=== PATIENT | male | born 1970 | race Caucasian/White ===

== ENCOUNTER 2022-09-25 16:46 | Emergency (ER) | payer OTHER ==
[2022-09-25 16:54] VITALS: BP 118/80; RESP 18; TEMP 97.6
[2022-09-25] MEDS ORDERED: MORPHINE SULFATE 4 MG/ML SYRINGE IM STA (17:11)
[2022-09-25] MEDS ORDERED: KETOROLAC 15 MG/ML 1 ML VIAL IM STA (17:11)
[2022-09-25] MEDS ORDERED: DIPH,PERTUS(ACELL)TETVAC-LF 0.5 ML VIAL IM ONE (17:22)
--- NOTE | 2022-09-25 17:25 | ED ---
Upper Extremity HPI - General Chief Complaint: Extremity Injury, Upper Stated Complaint: Left thumb laceration Time Seen by Provider: 09/25/22 17:01 Source: patient, EMS Mode of arrival: EMS Limitations: no limitations - History of Present Illness Initial Comments: 52-year-old male presenting with chief complaint of injury to the left thumb. Patient was working on his car when the romario malfunctioned causing the weight to come down onto his thumb. Patient is on [place]. Does not remember when his last tetanus shot was. He is currently experiencing 7 out of 10 throbbing pain to the thumb. Some sensation is intact. - Related Data Previous Rx's Medication Instructions Recorded Acetaminophen-Codeine 300-30mg 1 tab PO Q4H PRN 3 Days #18 tablet 09/25/22 [Tylenol w/codeine #3] Cephalexin [Keflex] 500 mg PO Q6HR 7 Days #28 cap 09/25/22 Allergies Allergy/AdvReac Type Severity Reaction Status Date / Time No Known Allergies Allergy Verified 09/25/22 16:54 Review of Systems ROS Statement: Those systems with pertinent positive or pertinent negative responses have been documented in the HPI. ROS Other: All systems not noted in ROS Statement are negative. Past Medical History Past Medical History: Diabetes Mellitus, GERD/Reflux, Myocardial Infarction ([place]) Additional Past Medical History / Comment(s): Heart cath with stent placement History of Any Multi-Drug Resistant Organisms: None Reported Past Surgical History: Heart Catheterization With Stent Past Psychological History: Bipolar, Depression, PTSD Smoking Status: Never smoker Past Alcohol Use History: Rare Past Drug Use History: None Reported General Exam Limitations: no limitations General appearance: alert, in no apparent distress Head exam: Present: atraumatic, normocephalic, normal inspection Eye exam: Present: normal appearance, EOMI. Absent: scleral icterus, periorbital swelling Neck exam: Present: normal inspection, full ROM Neurological exam: Present: alert, oriented X3, CN II-XII intact Psychiatric exam: Present: normal affect, normal mood Expanded Type of lesion: Present: laceration (5cm laceration and deformity to the L thumb) Course Vital Signs 09/25/22 09/25/22 16:47 19:25 Temperature 97.6 F Pulse Rate 92 86 Respiratory 18 18 Rate Blood Pressure 118/80 O2 Sat by Pulse 98 97 Oximetry Procedures - Laceration Laceration #1 Consent Obtained: verbal consent Indication: laceration Site: hand Size (cm): 8 Description: flap, irregular, contaminated, foreign body Depth: involves muscle layer, involves tendon Anesthetic Used: lidocaine 1%, without epi Anesthesia Technique: nerve block Pre-repair: wound explored, irrigated extensively Type of Sutures: nylon Size of Sutures: 3-0 Number of Sutures: 9 Technique: simple, interrupted Patient Tolerated Procedure: well Medical Decision Making - Medical Decision Making Was pt. sent in by a medical professional or institution (AARON Katz, CLINICAL ASSISTANT, urgent care, hospital, or penitentiary...) When possible be specific @ -No Did you speak to anyone other than the patient for history (EMS, parent, family, police, friend...)? What history was obtained from this source @ -No Did you review nursing and triage notes (agree or disagree)? Why? @ -I reviewed and agree with nursing and triage notes Were old charts reviewed (outside hosp., previous admission, EMS record, old EKG, old radiological studies, urgent care reports/EKG's, penitentiary records)? Report findings @ -No old charts were reviewed Differential Diagnosis (chest pain, altered mental status, abdominal pain women, abdominal pain men, vaginal bleeding, weakness, fever, dyspnea, syncope, headache, dizziness, GI bleed, back pain, seizure, CVA, palpatations, mental health, musculoskeletal)? @ -not applicable EKG interpreted by me (3pts min.). @ -As above X-rays interpreted by me (1pt min.). @ -Comminuted fracture diastases of fracture fragments of the proximal portion distal phalanx left thumb. Intra-articular extension was evident. Multiple radiopaque foreign bodies through the laceration site CT interpreted by me (1pt min.). @ -None done U/S interpreted by me (1pt. min.). @ -None done What testing was considered but not performed or refused? (CT, X-rays, U/S, labs)? Why? @ -None What meds were considered but not given or refused? Why? @ -None Did you discuss the management of the patient with other professionals (professionals i.e. AARON Katz, CLINICAL ASSISTANT, lab, RT, psych nurse, social media marketing manager, brick grader, teacher, personal banking officer, case filler)? Give summary @ -No Was smoking cessation discussed for >3mins.? @ -No Was critical care preformed (if so, how long)? @ -No Were there social determinants of health that impacted care today? How? (Homelessness, low income, unemployed, alcoholism, drug addiction, transportation, low edu. Level, literacy, decrease access to med. care, retirement, rehab)? @ -No Was there de-escalation of care discussed even if they declined (Discuss DNR or withdrawal of care, Hospice)? DNR status @ -No What co-morbidities impacted this encounter? (DM, HTN, Smoking, COPD, CAD, Cancer, CVA, ARF, Chemo, Hep., AIDS, mental health diagnosis, sleep apnea, morbid obesity)? @ -None Was patient admitted / discharged? Hospital course, mention meds given and route, prescriptions, significant lab abnormalities, going to OR and other pertinent info. @ -A 52-year-old male presenting with chief complaint of injury to the left thumb. Patient was working on his car [employer] malfunction the car fell onto his thumb. There is partial amputation evidence of open fracture of the large laceration. X-ray shows comminuted fracture with intra-articular extension. Nerve block is administered and wound is thoroughly irrigated. Sutures are placed. Patient is placed in a bulky dressing with a finger splint and instructed to follow-up with orthopedics on Tuesday. Started on Keflex. Follow- up with PCP. Report back to ER with any new or worsening symptoms. Discussed return parameters and answered all questions. Patient conveyed verbal understanding and agreed to the plan. I discussed this case in detail with my attending Dr. Carrasco Undiagnosed new problem with uncertain prognosis? @ -No Drug Therapy requiring intensive monitoring for toxicity (Heparin, Nitro, Insulin, Cardizem)? @ -No Were any procedures done? @ -Laceration repair Diagnosis/symptom? @ -Partial thumb amputation Acute, or Chronic, or Acute on Chronic? @ -Acute Uncomplicated (without systemic symptoms) or Complicated (systemic symptoms)? @ -Complicated Side effects of treatment? @ -No Exacerbation, Progression, or Severe Exacerbation? @ -No Poses a threat to life or bodily function? How? (Chest pain, [place], [place], pneumonia, PE, COPD, DKA, ARF, appy, cholecystitis, CVA, Diverticulitis, Homicidal, Suicidal, threat to staff... 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 Report back to ER with any new or worsening symptoms. Keep the wound clean, dry, and covered. Take antibiotics as prescribed. Prescriptions: Cephalexin [Keflex] 500 mg PO Q6HR 7 Days #28 cap Acetaminophen-Codeine 300-30mg [Tylenol w/codeine #3] 1 tab PO Q4H PRN 3 Days #18 tablet PRN Reason: Pain Is patient prescribed a controlled substance at d/c from ED?: No Referrals: Nonstaff,Physician [Primary Care Provider] - 1-2 days Micky Carlisle DO [Doctor of Osteopathic Medicine] - 1-2 days Tatianna Sol DO [Doctor of Osteopathic Medicine] - 1-2 days Time of Disposition: 19:05
[2022-09-25] MEDS ORDERED: LIDOCAINE 1% INJ 10MG/ML (30 ML VIAL-PF) SQ ONE (17:34)
--- NOTE | 2022-09-25 17:41 | XR ---
EXAMINATION TYPE: XR finger LT DATE OF EXAM: 09/25/2022 COMPARISON: None HISTORY: Thumb laceration TECHNIQUE: 3 view left thumb FINDINGS: There is a comminuted fracture through the distal phalanx left thumb. There are multiple sm all radiopaque foreign bodies present through the fracture site. There is diastases of the fracture f ragments. Intra-articular fracture extension is evident. Subluxation of fracture fragment from the mahendra int space. IMPRESSION: 1. Comminuted fracture diastases of fracture fragments of the proximal portion distal phalanx left t humb. Intra-articular extension is evident. 2. Multiple radiopaque foreign bodies through the laceration site.
[2022-09-25] MEDS ORDERED: ACET/COD 300 MG/30 MG STARTER PACK 6 TAB BTL PO STA (19:05)
[2022-09-25] MEDS ORDERED: CEPHALEXIN 500 MG CAP PO STA (19:06)
[2022-09-25 19:26] VITALS: PULSE 86
== END 2022-09-25 19:26 | disposition home or self-care (01) ==
LOC: EC 16:46
DX: S68.021A Partial traumatic metacarpophalangeal amputation of right thumb, initial encounter (principal); E11.9 Type 2 diabetes mellitus without complications; I25.2 Old myocardial infarction; Z86.59 Personal history of other mental and behavioral disorders; Z23 Encounter for immunization; W20.8XXA Other cause of strike by thrown, projected or falling object, initial encounter
CPT/HCPCS: 73140; 90715; 99284; 90471; 96372 ×2; 12004; J2270; J2001; J1885

== ENCOUNTER → 2022-09-29 | Outpatient (CLI) | payer OTHER ==
[2022-09-29 20:21] LABS: Blood Urea Nitrogen 13.5 mg/dL (9.0-27.0); Calcium 9.4 mg/dL (8.7-10.3); Carbon Dioxide 26.1 mmol/L (21.6-31.8); Chloride 102 mmol/L (96-109); Glucose 204 mg/dL (70-110); Potassium 5.2 mmol/L (3.5-5.5); Sodium 140 mmol/L (135-145)
[2022-09-29 20:57] LABS: Basophils # (A) 0.08 X 10*3/uL (0.00-0.10); Basophils % (A) 0.8 %; Eosinophils # (A) 0.83 X 10*3/uL (0.04-0.35); Eosinophils % (A) 8.5 %; HCT 43.9 % (39.6-50.0); HGB 13.6 d/dL (12.0-15.0); Lymphocytes % (A) 22.4 %; MCH 27.1 pg (27.0-32.0); MCV 87.6 FL (80.0-97.0); Mean Platelet Volume 11.5 FL (9.5-12.2); Monocytes # (A) 0.76 X 10*3/uL (0.20-1.00); Monocytes % (A) 7.7 %; NRBC Per 100 WBC 0 X 10*3/uL (0.00-0.01); Neutrophils # (A) 5.89 X 10*3/uL (1.80-7.70); Neutrophils % (A) 60.1 %; Platelet Count 274 X 10*3/uL (140-440); RBC 5.01 X 10*6/uL (4.40-5.60); RDW 13.2 % (11.5-14.5); WBC 9.81 X 10*3/uL (4.50-10.00)
== END | disposition home or self-care (01) ==
LOC: LABPAT 12:45
PROVIDERS: ATTEND Orthopaedic Surgery Hand Surgery
DX: Z01.812 Encounter for preprocedural laboratory examination (principal)
CPT/HCPCS: 80048; 85025

== ENCOUNTER 2022-10-01 07:24 | Day surgery (SDC) | payer OTHER ==
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
[2022-10-01] MEDS ORDERED: DEXAMETHASONE SOD PHOSPHATE 4 MG/ML 1 ML VIAL IV ONE (07:47)
[2022-10-01] MEDS ORDERED: SCOPOLAMINE 1 MG/72 HR PATCH TRANSDERM ONE (07:47)
[2022-10-01] MEDS ORDERED: MIDAZOLAM 2 MG/2 ML VIAL IV PRN (07:47)
[2022-10-01] MEDS ORDERED: LACTATED RINGERS 1,000 ML IV SCH (07:47)
[2022-10-01] MEDS ORDERED: HYDROmorphone 0.5 MG/0.5 ML SYRINGE IVP PRN (07:47)
[2022-10-01] MEDS ORDERED: ONDANSETRON 4 MG/2 ML VIAL IVP ONE (07:47)
[2022-10-01 08:16] LABS: Glucose,Whole Blood 169 mg/dL (70-110)
[2022-10-01 08:21] LABS: HCT 43.2 % (39.0-53.0); HGB 14.5 gm/dL (13.0-17.5); MCH 28.4 pg (25.0-35.0); MCHC 33.6 g/dL (31.0-37.0); MCV 84.4 fL (80.0-100.0); Mean Platelet Volume 8.8; Platelet Count 280 k/uL (150-450); RBC 5.12 m/uL (4.30-5.90); RDW 13.6 % (11.5-15.5); WBC 9.3 k/uL (3.8-10.6)
[2022-10-01] MEDS ORDERED: MIDAZOLAM 2 MG/2 ML VIAL ONE (09:01)
[2022-10-01] MEDS ORDERED: fentaNYL (PF) 50 MCG/ML 2 ML AMP ONE (09:01)
[2022-10-01] MEDS ORDERED: LIDOCAINE 2% INJ 20 MG/ML (2 ML VIAL) ONE (09:01)
[2022-10-01] MEDS ORDERED: KETOROLAC 15 MG/ML 1 ML VIAL ONE (09:01)
[2022-10-01] MEDS ORDERED: PROPOFOL 10 MG/ML 20 ML VIAL IV ONE (09:01)
[2022-10-01] MEDS ORDERED: SUCCINYLCHOLINE CHLORIDE 200 MG/10 ML VIAL IV ONE (09:01)
[2022-10-01] MEDS ORDERED: BUPIVACAINE (PF) 0.5% 30 ML VIAL SQ ONE (09:32)
[2022-10-01 10:45] VITALS: RESP 16; TEMP 97.9
[2022-10-01 11:45] VITALS: PULSE 71
[2022-10-01 11:49] VITALS: BP 130/84
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
== END 2022-10-01 12:02 | disposition home or self-care (01) ==
LOC: OR 07:24
PROVIDERS: ATTEND Orthopaedic Surgery Hand Surgery
DX: S62.521A Displaced fracture of distal phalanx of right thumb, initial encounter for closed fracture (principal); S62.512A Displaced fracture of proximal phalanx of left thumb, initial encounter for closed fracture; E11.9 Type 2 diabetes mellitus without complications; K21.9 Gastro-esophageal reflux disease without esophagitis; I10 Essential (primary) hypertension; E78.5 Hyperlipidemia, unspecified; I25.2 Old myocardial infarction; G47.33 Obstructive sleep apnea (adult) (pediatric); Z79.82 Long term (current) use of aspirin; Z79.84 Long term (current) use of oral hypoglycemic drugs; Z79.899 Other long term (current) drug therapy; X58.XXXA Exposure to other specified factors, initial encounter
CPT/HCPCS: 84132; 85027; 25608; J2250; J0330; J1100; J0690; J2405; J3010; J1885; J2704; J2001

== ENCOUNTER 2023-10-06 20:54 | Observation (INO) | payer OTHER ==
[2023-10-06] MEDS: SODIUM CHLORIDE 0.9% 1,000 ML IV ONE (21:23)
[2023-10-06 21:37] LABS: Basophils # (A) 0.1 k/uL (0-0.2); Basophils % (A) 1 %; Eosinophils # (A) 0.8 k/uL (0-0.7); Eosinophils % (A) 7 %; HCT 42.2 % (39.0-53.0); HGB 13.7 gm/dL (13.0-17.5); Lymphocytes # (A) 2.4 k/uL (1.0-4.8); Lymphocytes % (A) 22 %; MCH 27.9 pg (25.0-35.0); MCHC 32.5 g/dL (31.0-37.0); MCV 85.8 fL (80.0-100.0); Mean Platelet Volume 8.5; Monocytes # (A) 0.6 k/uL (0-1.0); Monocytes % (A) 5 %; Neutrophils % (A) 64 %; Platelet Count 221 k/uL (150-450); RBC 4.91 m/uL (4.30-5.90); RDW 13.3 % (11.5-15.5); WBC 10.9 k/uL (3.8-10.6)
[2023-10-06] MEDS: KETOROLAC 15 MG/ML 1 ML VIAL IVP STA (21:46)
--- NOTE | 2023-10-06 21:47 | XR ---
EXAMINATION TYPE: XR hand complete LT DATE OF EXAM: 10/06/2023 9:41 PM CLINICAL INDICATION:Male, 53 years old with history of swelling; left arm spider bite COMPARISON: None TECHNIQUE: 3 views of the left hand. FINDINGS: Osseous mineralization appears appropriate. No destructive bony lesion. No acute fracture or dislocat ion. There are mild chronic degenerative changes. No periarticular erosions. Unremarkable soft tissue s. No radiopaque foreign body is seen. Tiny speck of radiodensity consistent with surface contaminan t projected between the distal second and third fingers. IMPRESSION: No acute bony abnormality of the left hand.
[2023-10-06 22:01] LABS: ALT 22 U/L (4-49); AST 26 U/L (17-59); African American GFR (CKD) >90 (>60 ml/min/1.73 sqM); Albumin 4.6 g/dL (3.5-5.0); Alkaline Phosphatase 57 U/L (38-126); Anion Gap 11 mmol/L; Blood Urea Nitrogen 15 mg/dL (9-20); Calcium 9.4 mg/dL (8.4-10.2); Carbon Dioxide 22 mmol/L (22-30); Chloride 105 mmol/L (98-107); Glucose 192 mg/dL (74-99); Non-African American GFR(CKD) 87 (>60 ml/min/1.73 sqM); Sodium 138 mmol/L (137-145); Total Bilirubin 0.8 mg/dL (0.2-1.3); Total Protein 6.6 g/dL (6.3-8.2)
[2023-10-06] MEDS ORDERED: VANCOMYCIN IV PER PHARMACY 1 EACH MISC MISCELLANE PRN (22:41)
[2023-10-06] MEDS ORDERED: MORPHINE SULFATE 4 MG/ML SYRINGE IVP PRN (22:42)
[2023-10-06] MEDS ORDERED: KETOROLAC 15 MG/ML 1 ML VIAL IVP PRN (22:42)
--- NOTE | 2023-10-06 22:47 | ED ---
General Adult HPI - General Chief complaint: Skin/Abscess/Foreign Body Stated complaint: hand swelling Time Seen by Provider: 10/06/23 21:04 Source: patient Mode of arrival: ambulatory Limitations: no limitations - History of Present Illness Initial comments: 53-year-old male presenting with chief complaint of redness and swelling to the left hand and arm. History of diabetes, hypertension, hyperlipidemia. Patient states that yesterday he was out cutting the grass and a lot of bugs were around, thinks that he may have been bitten by a bug but is unsure. He has had no other acute injuries. Yesterday he started having some redness and swelling to the dorsum of the left hand, upon waking up symptoms were worse today. Later on in the day he noticed new red streaking up the left forearm which prompted him to come to the ER. No fevers or chills. - Related Data Home Medications Medication Instructions Recorded Confirmed Aspirin 81 mg PO DAILY 09/29/22 10/01/22 Empagliflozin [Jardiance] 12.5 mg PO DAILY 09/29/22 10/01/22 Gabapentin [Neurontin] 400 mg PO BID 09/29/22 10/01/22 Ibuprofen [Motrin] 600 mg PO DIRECTED PRN 09/29/22 10/01/22 Metoprolol Tartrate [Lopressor] 50 mg PO BID 09/29/22 10/01/22 Omeprazole 20 mg PO BID 09/29/22 10/01/22 Rosuvastatin Calcium 40 mg PO HS 09/29/22 10/01/22 Semaglutide [Ozempic] 0.5 mg SQ FR 09/29/22 10/01/22 Ticagrelor [Brilinta] 40 mg PO BID 09/29/22 10/01/22 Unk Fish Oil 1 tab PO BID 09/29/22 10/01/22 Unk Zoloft 1 tab PO DAILY 09/29/22 10/01/22 lisinopriL [Zestril] 5 mg PO HS 09/29/22 10/01/22 metFORMIN HCL 1,000 mg PO BID 09/29/22 10/01/22 Previous Rx's Medication Instructions Recorded Acetaminophen-Codeine 300-30mg 1 tab PO Q4H PRN 3 Days #18 tablet 09/25/22 [Tylenol w/codeine #3] Cephalexin [Keflex] 500 mg PO Q6HR 7 Days #28 cap 09/25/22 HYDROcodone/APAP 5-325MG [[place] 1 tab PO Q6HR PRN 3 Days #24 tab 10/01/22 5-325] Allergies Allergy/AdvReac Type Severity Reaction Status Date / Time No Known Allergies Allergy Verified 10/06/23 20:58 Review of Systems ROS Statement: Those systems with pertinent positive or pertinent negative responses have been documented in the HPI. ROS Other: All systems not noted in ROS Statement are negative. Past Medical History Past Medical History: Chest Pain / Angina, Diabetes Mellitus, GERD/Reflux, Hyperlipidemia, Hypertension, Myocardial Infarction ([place]), Sleep Apnea/CPAP/BIPAP Additional Past Medical History / Comment(s): Heart cath with stent placement, injury to right thumb, not wearing cpap Last Myocardial Infarction Date:: 2018 History of Any Multi-Drug Resistant Organisms: None Reported Past Surgical History: Heart Catheterization With Stent Additional Past Surgical History / Comment(s): stent total 5. deviated septum sx Past Anesthesia/Blood Transfusion Reactions: No Reported Reaction Date of Last Stent Placement:: 05/2022 Past Psychological History: Bipolar, Depression, PTSD Smoking Status: Never smoker Past Alcohol Use History: Occasional Past Drug Use History: None Reported - Past Family History Mother Family Medical History: No Reported History General Exam Limitations: no limitations General appearance: alert, in no apparent distress Head exam: Present: atraumatic, normocephalic Eye exam: Present: normal appearance, EOMI Neck exam: Present: normal inspection. Absent: meningismus Respiratory exam: Absent: respiratory distress Cardiovascular Exam: Present: regular rate Left Forearm Wrist exam: Present: erythema (Red streaking leading from hand up the forearm) Hand Wrist exam: Present: tenderness, swelling, erythema. Absent: full ROM Neurological exam: Present: alert, oriented X3 Psychiatric exam: Present: normal affect, normal mood Skin exam: Present: warm, dry, erythema Course Vital Signs 10/06/23 10/06/23 20:56 22:39 Temperature 98 F 98.3 F Pulse Rate 86 74 Respiratory 18 18 Rate Blood Pressure 143/79 118/64 O2 Sat by Pulse 98 96 Oximetry Medical Decision Making - Medical Decision Making Was pt. sent in by a medical professional or institution (, PA, [employer]TURE RELAMPER, urgent care, hospital, or half-way...) When possible be specific @ -No Did you speak to anyone other than the patient for history (EMS, parent, family, police, friend...)? What history was obtained from this source @ -No Did you review nursing and triage notes (agree or disagree)? Why? @ -I reviewed and agree with nursing and triage notes Were old charts reviewed (outside hosp., previous admission, EMS record, old EKG, old radiological studies, urgent care reports/EKG's, half-way records)? Report findings @ -No old charts were reviewed Differential Diagnosis (chest pain, altered mental status, abdominal pain women, abdominal pain men, vaginal bleeding, weakness, fever, dyspnea, syncope, headac he, dizziness, GI bleed, back pain, seizure, CVA, palpatations, mental health, musculoskeletal)? @ -Differential Musculoskeletal Muscular strain, contusion, ligament sprain, fracture, arthritis, septic arthritis, bursitis, cellulitis, muscle spasm, nerve compression, DVT, arterial occlusion, herpes zoster, electrolyte abnormality, tumor.... This is not meant to be in all inclusive list EKG interpreted by me (3pts min.). @ -As above X-rays interpreted by me (1pt min.). @ -X-ray shows no acute bony abnormality of the left hand CT interpreted by me (1pt min.). @ -None done U/S interpreted by me (1pt. min.). @ -None done What testing was considered but not performed or refused? (CT, X-rays, U/S, labs)? Why? @ -None What meds were considered but not given or refused? Why? @ -None Did you discuss the management of the patient with other professionals (professionals i.e. , PA, [employer]AMPER, lab, RT, psych nurse, social media specialist, principal gifts officer, teacher, chief science officer, classification case manager)? Give summary @ -Case was discussed with Dr. Silva who accepted admission Was smoking cessation discussed for >3mins.? @ -No Was critical care preformed (if so, how long)? @ -No Were there social determinants of health that impacted care today? How? (Homelessness, low income, unemployed, alcoholism, drug addiction, transportation, low edu. Level, literacy, decrease access to med. care, alf, rehab)? @ -No Was there de-escalation of care discussed even if they declined (Discuss DNR or withdrawal of care, Hospice)? DNR status @ -No What co-morbidities impacted this encounter? (DM, HTN, Smoking, COPD, CAD, Can cer, CVA, ARF, Chemo, Hep., AIDS, mental health diagnosis, sleep apnea, morbid obesity)? @ -Diabetes Was patient admitted / discharged? Hospital course, mention meds given and route, prescriptions, significant lab abnormalities, going to OR and other pertinent info. @ -53-year-old male presenting with chief complaint of redness tenderness and swelling to the dorsum of the left hand with red streaking up the left forearm. Symptoms started yesterday. History and physical exam are conducted. WBC 10.9. CRP 1. ESR sent. X-ray is negative for acute bony process. Given the patient's new lymphangitis I believe it would be best for him to have at least an overnight stay with IV antibiotics and reevaluation in the morning. He is agreeable with this plan. Vancomycin and Zosyn are ordered. I discussed this case with my attending Dr. Mcclure. Undiagnosed new problem with uncertain prognosis? @ -No Drug Therapy requiring intensive monitoring for toxicity (Heparin, Nitro, Insulin, Cardizem)? @ -No Were any procedures done? @ -No Diagnosis/symptom? @ -Cellulitis Acute, or Chronic, or Acute on Chronic? @ -Acute Uncomplicated (without systemic symptoms) or Complicated (systemic symptoms)? @ -Complicated Side effects of treatment? @ -No Exacerbation, Progression, or Severe Exacerbation? @ -No Poses a threat to life or bodily function? How? (Chest pain, [place], [place], pneumonia, PE, COPD, DKA, ARF, appy, cholecystitis, CVA, Diverticulitis, Homicidal, Suicidal, threat to staff... and all critical care pts) @ -Potential - Lab Data Result diagrams: 10/06/23 21:14 10/06/23 21:14 Lab Results 10/06/23 10/06/23 Range/Units 21:14 21:14 WBC 10.9 H (3.8-10.6) k/uL RBC 4.91 (4.30-5.90) m/uL Hgb 13.7 (13.0-17.5) gm/dL Hct 42.2 (39.0-53.0) % MCV 85.8 (80.0-100.0) fL MCH 27.9 (25.0-35.0) pg MCHC 32.5 (31.0-37.0) g/dL RDW 13.3 (11.5-15.5) % Plt Count 221 (150-450) k/uL MPV 8.5 Neutrophils % 64 % Lymphocytes % 22 % Monocytes % 5 % Eosinophils % 7 % Basophils % 1 % Neutrophils # 7.0 (1.3-7.7) k/uL Lymphocytes # 2.4 (1.0-4.8) k/uL Monocytes # 0.6 (0-1.0) k/uL Eosinophils # 0.8 H (0-0.7) k/uL Basophils # 0.1 (0-0.2) k/uL Sodium 138 (137-145) mmol/L Potassium 4.0 (3.5-5.1) mmol/L Chloride 105 (98-107) mmol/L Carbon Dioxide 22 (22-30) mmol/L Anion Gap 11 mmol/L BUN 15 (9-20) mg/dL Creatinine 0.98 (0.66-1.25) mg/dL Est GFR (CKD-EPI)AfAm >90 (>60 ml/min/1.73 sqM) Est GFR (CKD-EPI)NonAf 87 (>60 ml/min/1.73 sqM) Glucose 192 H (74-99) mg/dL Calcium 9.4 (8.4-10.2) mg/dL Total Bilirubin 0.8 (0.2-1.3) mg/dL AST 26 (17-59) U/L ALT 22 (4-49) U/L Alkaline Phosphatase 57 (38-126) U/L C-Reactive Protein 1.0 H (<1.0) mg/dL Total Protein 6.6 (6.3-8.2) g/dL Albumin 4.6 (3.5-5.0) g/dL Disposition Clinical Impression: Cellulitis Disposition: ADMITTED IP TO THIS [facility] Condition: Fair Referrals: Favio Buchanan DO [Primary Care Provider] - 1-2 days Time of Disposition: 22:47
[2023-10-06] MEDS: PIPERACILLIN-TAZOBACTAM 3.375 GM in SODIUM CHLORIDE 0.9% 100 ML IVPB STA (23:25)
[2023-10-07] MEDS: diphenhydrAMINE 50 MG/ML 1 ML VIAL IVP STA (00:12)
--- NOTE | 2023-10-07 01:04 | P.HPIM ---
History of Present Illness H&P Date: 10/07/23 Chief Complaint: swelling of the left hand Patient is a 53-year-old male with past medical history of type 2 diabetes, hypertension and CAD s/p 5 stents presents to the ER with a swelling of left hand and left forearm. Patient first noticed mild rash before going to bed last night and woke up in the morning today with a swollen left hand which progressively got worse. Patient believes that it could have been a bug bite but he is not sure. Patient reports mild numbness of the L hand associated with tingling. He is otherwise able to move his fingers, left wrist and left forearm. He reports previous episodes where bee stings resulted in similar findings but this event seems to be worse and long-lasting and associated with streaking. He otherwise denies any fever, chills, nausea, vomiting, headaches, dizziness, shortness of breath, chest pain, diarrhea, constipation and numbness/tingling in lower extremities. X-ray of the left hand in the ER shows no acute bony abnormalities Laboratory evaluation show WBC 10.9, hemoglobin 13.7, hematocrit 42.2, MCV 85.8, platelet count 221, sodium 138, potassium 4.0, chloride 105, bicarbonate 22, BUN 15, creatinine 0.98, and glucose 192 Vitals: Tmax 98.3, heart rate 74, respiratory rate 18, blood pressure 118/64, O2 sat 96% on room air. Review of systems: Pertinent positives and negatives as discussed in HPI, a complete review of systems was performed and all other systems are negative. Social history: Tobacco: Non-smoker Alcohol: Occasionally Recreational drugs: None reported Travel: No recent travel Family History: Noncontributory Physical examination: Vital signs reviewed General: non toxic, no distress, appears at stated age, normal weight Derm: Moderate swelling of the left hand and left forearm with induration and erythema. Streak-like erythema on the ventral surface of the left forearm just crossing the elbow Head: atraumatic, normocephalic, symmetric Eyes: EOMI, no lid lag, anicteric sclera, pupils equal round reactive to light ENT: Nose and ears atraumatic Neck: No cervical lymphadenopathy, trachea midline, supple Mouth: no lip lesion, mucus membranes moist Cardiovascular: S1S2 reg, no murmur, positive dorsalis pedis pulse bilateral, no edema Lungs: CTA bilateral, no rhonchi, no rales, no accessory muscle use Abdominal: soft, nontender to palpation, no guarding Ext: muscle strength 5 out of 5 in all 4 extremities grossly, no gross muscle atrophy, no contractures, Neuro: CN II-XI grossly intact, no gross focal neuro deficits Psych: Alert, oriented, appropriate affect Assessment/Plan: 53-year-old male with a past medical history of type 2 diabetes, hypertension and CAD s/p 5 stents presents to the ER with history of swelling of the left hand and left forearm that started 1 to 2 days ago. 1. Cellulitis of the left hand and left forearm Continue with Vancomycin for empiric MRSA coverage Hand surgery consulted Repeat CBC with differential Follow-up on blood culture Affected area marked Continue with Toradol and Morphine for pain control 2. Hyperglycemia Check HbA1c Order sliding scale short acting insulin * Chronic conditions: Type 2 diabetes, GERD, hypertension Will resume home medications once they have been updated and reviewed DVT prophylaxis: Lovenox 40 mg subcu daily The patient is admitted with an anticipated more than 2 midnight stay for evaluation of cellulitis CODE STATUS: Full Discussed with: Patient Anticipated discharge place: Home Past Medical History Past Medical History: Chest Pain / Angina, Diabetes Mellitus, GERD/Reflux, Hyperlipidemia, Hypertension, Myocardial Infarction ([place]), Sleep Apnea/CPAP/BIPAP Additional Past Medical History / Comment(s): Heart cath with stent placement, injury to right thumb, not wearing cpap Last Myocardial Infarction Date:: 2018 History of Any Multi-Drug Resistant Organisms: None Reported Past Surgical History: Heart Catheterization With Stent Additional Past Surgical History / Comment(s): stent total 5. deviated septum sx Past Anesthesia/Blood Transfusion Reactions: No Reported Reaction Date of Last Stent Placement:: 05/2022 Past Psychological History: Bipolar, Depression, PTSD Smoking Status: Never smoker Past Alcohol Use History: Occasional Past Drug Use History: None Reported - Past Family History Mother Family Medical History: No Reported History Medications and Allergies Home Medications Medication Instructions Recorded Confirmed Type Acetaminophen-Codeine 300-30mg 1 tab PO Q4H PRN 3 Days #18 tablet 09/25/22 10/01/22 Rx [Tylenol w/codeine #3] Cephalexin [Keflex] 500 mg PO Q6HR 7 Days #28 cap 09/25/22 10/01/22 Rx Aspirin 81 mg PO DAILY 09/29/22 10/01/22 History Empagliflozin [Jardiance] 12.5 mg PO DAILY 09/29/22 10/01/22 History Gabapentin [Neurontin] 400 mg PO BID 09/29/22 10/01/22 History Ibuprofen [Motrin] 600 mg PO DIRECTED PRN 09/29/22 10/01/22 History Metoprolol Tartrate [Lopressor] 50 mg PO BID 09/29/22 10/01/22 History Omeprazole 20 mg PO BID 09/29/22 10/01/22 History Rosuvastatin Calcium 40 mg PO HS 09/29/22 10/01/22 History Semaglutide [Ozempic] 0.5 mg SQ FR 09/29/22 10/01/22 History Ticagrelor [Brilinta] 40 mg PO BID 09/29/22 10/01/22 History Unk Fish Oil 1 tab PO BID 09/29/22 10/01/22 History Unk Zoloft 1 tab PO DAILY 09/29/22 10/01/22 History lisinopriL [Zestril] 5 mg PO HS 09/29/22 10/01/22 History metFORMIN HCL 1,000 mg PO BID 09/29/22 10/01/22 History HYDROcodone/APAP 5-325MG [[place] 1 tab PO Q6HR PRN 3 Days #24 tab 10/01/22 Rx 5-325] Allergies Allergy/AdvReac Type Severity Reaction Status Date / Time No Known Allergies Allergy Verified 10/06/23 20:58 Physical Exam Vitals: Vital Signs Temp Pulse Resp BP Pulse Ox 10/06/23 22:39 98.3 F 74 18 118/64 96 10/06/23 20:56 98 F 86 18 143/79 98 Intake and Output 10/06/23 10/06/23 10/07/23 14:59 22:59 06:59 Other: Weight 102.058 kg Results CBC & Chem 7: 10/06/23 21:14 10/06/23 21:14 Labs: Abnormal Lab Results - Last 24 Hours (Table) 10/06/23 10/06/23 Range/Units 21:14 21:14 WBC 10.9 H (3.8-10.6) k/uL Eosinophils # 0.8 H (0-0.7) k/uL Glucose 192 H (74-99) mg/dL C-Reactive Protein 1.0 H (<1.0) mg/dL
[2023-10-07] MEDS: VANCOMYCIN 1,500 MG in SODIUM CHLORIDE 0.9% 500 ML 500 ML IVPB ONE (01:14)
[2023-10-07] MEDS ORDERED: NALOXONE 0.4 MG/ML 1 ML VIAL IV PRN (01:21)
[2023-10-07 03:50] LABS: Glucose,Whole Blood 132 mg/dL (70-110)
[2023-10-07 06:49] LABS: Glucose,Whole Blood 121 mg/dL (70-110)
[2023-10-07] MEDS: INSULIN ASPART (NovoLOG) 100 UNIT/ML VIAL SQ SCH (07:44)
[2023-10-07 08:57] LABS: Erythrocyte Sedimentation Rate 12 mm/Hr (0-20)
[2023-10-07] MEDS: ENOXAPARIN 40 MG/0.4 ML SYRINGE SQ SCH (09:24)
[2023-10-07] MEDS ORDERED: ceFAZolin 3 GM in SODIUM CHLORIDE 0.9% 100 ML IVPB SCH (10:30)
[2023-10-07 12:23] LABS: Glucose,Whole Blood 135 mg/dL (70-110)
[2023-10-07] MEDS ORDERED: VANCOMYCIN 1,500 MG in SODIUM CHLORIDE 0.9% 500 ML 500 ML IVPB SCH (13:00)
[2023-10-07] MEDS ORDERED: ALBUTEROL HFA INHALER INHALATION PRN (14:56)
[2023-10-07] MEDS: diphenhydrAMINE 50 MG CAP PO STA (17:24)
[2023-10-07 17:33] LABS: Glucose,Whole Blood 154 mg/dL (70-110)
[2023-10-07 21:04] LABS: Glucose,Whole Blood 160 mg/dL (70-110)
[2023-10-07] MEDS: MIRTAZAPINE 15 MG TAB PO SCH (21:07)
[2023-10-07] MEDS: TICAGRELOR 90 MG TAB PO SCH (21:07)
[2023-10-07] MEDS: PANTOPRAZOLE 40 MG TABLET PO SCH (21:07)
[2023-10-07] MEDS: METOPROLOL TARTRATE 50 MG TAB PO SCH (21:07)
[2023-10-07] MEDS: GABAPENTIN 400 MG CAP PO SCH (21:07)
[2023-10-08 06:23] LABS: Glucose,Whole Blood 141 mg/dL (70-110)
[2023-10-08 08:31] LABS: Basophils # (A) 0.1 k/uL (0-0.2); Basophils % (A) 1 %; Eosinophils # (A) 0.6 k/uL (0-0.7); Eosinophils % (A) 8 %; HCT 44.5 % (39.0-53.0); HGB 14.1 gm/dL (13.0-17.5); Lymphocytes # (A) 1.5 k/uL (1.0-4.8); Lymphocytes % (A) 20 %; MCH 27.7 pg (25.0-35.0); MCHC 31.7 g/dL (31.0-37.0); MCV 87.3 fL (80.0-100.0); Mean Platelet Volume 8.2; Monocytes # (A) 0.5 k/uL (0-1.0); Monocytes % (A) 7 %; Neutrophils # (A) 4.3 k/uL (1.3-7.7); Neutrophils % (A) 60 %; Platelet Count 215 k/uL (150-450); RBC 5.09 m/uL (4.30-5.90); RDW 13.3 % (11.5-15.5); WBC 7.1 k/uL (3.8-10.6)
[2023-10-08 08:46] LABS: African American GFR (CKD) >90 (>60 ml/min/1.73 sqM); Anion Gap 7 mmol/L; Blood Urea Nitrogen 12 mg/dL (9-20); Calcium 9.2 mg/dL (8.4-10.2); Carbon Dioxide 26 mmol/L (22-30); Chloride 108 mmol/L (98-107); Glucose 145 mg/dL (74-99); Non-African American GFR(CKD) 89 (>60 ml/min/1.73 sqM); Potassium 4.1 mmol/L (3.5-5.1); Sodium 141 mmol/L (137-145)
[2023-10-08] MEDS: LORATADINE 10 MG TAB PO SCH (08:55)
[2023-10-08] MEDS: lisinopriL 5 MG TAB PO SCH (08:56)
[2023-10-08] MEDS: ASPIRIN 81 MG PO SCH (08:56)
[2023-10-08] MEDS: LURASIDONE 40 MG TAB PO SCH (08:56)
[2023-10-08] MEDS: ATORVASTATIN 40 MG TAB PO SCH (08:56)
[2023-10-08] MEDS: SERTRALINE 100 MG TAB PO SCH (08:56)
[2023-10-08] MEDS ORDERED: VANCOMYCIN TROUGH DUE 1 EACH MISC MISCELLANE ONE (12:00)
[2023-10-08 12:07] LABS: Glucose,Whole Blood 196 mg/dL (70-110)
[2023-10-08 12:27] VITALS: BP 110/71; PULSE 76; RESP 18; TEMP 98.1
--- NOTE | 2023-10-08 13:08 | P.DS ---
Providers Date of admission: 10/07/23 02:02 Expected date of discharge: 10/08/23 Attending physician: Maryanne Silva MD Primary care physician: Favio Buchanan Hospital Course: Discharge Diagnosis: Cellulitis of the left hand and left forearm Hyperglycemia/type 2 diabetes GERD Hypertension Hospital Course: 53-year-old male with a past medical history of type 2 diabetes, hypertension, CAD status post 5 stents presented to the ED with 1 day of swelling, tenderness, erythema, and streaks in his right hand and right forearm. Patient underwent imaging in the ED which ruled out any acute bony abnormality. Vital signs withi n normal limits. Laboratory workup showed WBC of 10.9, rest of the labs were within normal limits. Patient was admitted to the floors to receive IV antibiotics for suspected cellulitis and continue monitoring for further signs of infection. Patient's symptoms of right hand and right forearm swelling, tenderness, and erythema improved both days while in the hospital. Patient being discharged and reconciled home medication list. Patient's IV antibiotics were converted to oral to complete his course at home. Being discharged back to home. Patient is recommended to follow-up with his PCP. Pt seen and examined at bedside: Vital signs reveiwed and stable: General: Nontoxic, no distress, appears at stated age Derm: Warm, dry Head: Atruamatic, normochepalic, symmetric Eyes: EOMI, no lid lag, anicteric sclera Mouth: No lip lesion, mucus membranes moist Cardiovascular: S1S2 reg, no murmur Lung: CTA bilateral, no rhonchi, no rales, no accessory muscle use Abdominal: Soft, nontender to palpation, no guarding, no appreciable organomegaly Ext: No gross muscle atrophy, no edema, no contractures Neuro: CN II- XI grossly intact, no facial neuro deficits Psych: Alert, oriented, appropriate affect A total of 33 minutes were spent preparing this complex discarge summary. Patient was discharged on 10/08/2023 at 1128. I have seen and evaluated the patient today. Discussed with the resident and agree with the residents finding and plan as documented in the resident's note. Changes highlighted in blue font. Patient Condition at Discharge: Stable Plan - Discharge Summary New Discharge Prescriptions: New Cephalexin [Keflex] 500 mg PO Q6HR 5 Days #20 cap Continue Aspirin 81 mg PO DAILY Omeprazole 20 mg PO BID Semaglutide [Ozempic] 1 mg SQ SA Fluticasone Nasal [place] [Flonase Nasal [place]] 1 spray EA NOSTRIL BID PRN PRN Reason: Allergy Symptoms Cetirizine HCl 10 mg PO DAILY Lurasidone [Latuda] 40 mg PO DAILY Empagliflozin/Metformin HCl [Synjardy 12.5-1,000 mg Tablet] 1 tab PO BID Rosuvastatin Calcium [Crestor] 20 mg PO DAILY Gabapentin [Neurontin] 400 mg PO BID lisinopriL [Zestril] 5 mg PO DAILY Metoprolol Tartrate [Lopressor] 50 mg PO BID Sertraline [Zoloft] 100 mg PO DAILY Mirtazapine 30 mg PO HS Albuterol Inhaler [Ventolin Hfa Inhaler] 2 puff INHALATION RT-Q6H PRN PRN Reason: Shortness Of Breath Ticagrelor [Brilinta] 90 mg PO BID Discharge Medication List Aspirin 81 mg PO DAILY 09/29/22 [History] Gabapentin [Neurontin] 400 mg PO BID 09/29/22 [History] Metoprolol Tartrate [Lopressor] 50 mg PO BID 09/29/22 [History] Omeprazole 20 mg PO BID 09/29/22 [History] lisinopriL [Zestril] 5 mg PO DAILY 09/29/22 [History] Albuterol Inhaler [Ventolin Hfa Inhaler] 2 puff INHALATION RT-Q6H PRN 10/07/23 [History] Cetirizine HCl 10 mg PO DAILY 10/07/23 [History] Empagliflozin/Metformin HCl [Synjardy 12.5-1,000 mg Tablet] 1 tab PO BID 10/07/23 [History] Fluticasone Nasal [place] [Flonase Nasal [place]] 1 spray EA NOSTRIL BID PRN 10/07/23 [History] Lurasidone [Latuda] 40 mg PO DAILY 10/07/23 [History] Mirtazapine 30 mg PO HS 10/07/23 [History] Rosuvastatin Calcium [Crestor] 20 mg PO DAILY 10/07/23 [History] Semaglutide [Ozempic] 1 mg SQ SA 10/07/23 [History] Sertraline [Zoloft] 100 mg PO DAILY 10/07/23 [History] Ticagrelor [Brilinta] 90 mg PO BID 10/07/23 [History] Cephalexin [Keflex] 500 mg PO Q6HR 5 Days #20 cap 10/08/23 [Rx] Follow up Appointment(s)/Referral(s): Favio Buchanan DO [Primary Care Provider] - 1-2 days Patient Instructions/Handouts: Cellulitis (ED), Cellulitis (GEN) Activity/Diet/Wound Care/Special Instructions: Follow up with PCP and keep a look out for worsening signs of infection. Discharge Disposition: HOME SELF-CARE
== END 2023-10-08 13:20 | disposition home or self-care (01) ==
LOC: EC 20:54 → 6NMEDSUR 10-07 02:02
PROVIDERS: ADMIT Internal Medicine; ATTEND Internal Medicine
DX: L03.114 Cellulitis of left upper limb (principal); I25.10 Atherosclerotic heart disease of native coronary artery without angina pectoris; I10 Essential (primary) hypertension; E11.65 Type 2 diabetes mellitus with hyperglycemia; K21.9 Gastro-esophageal reflux disease without esophagitis; E78.5 Hyperlipidemia, unspecified; I25.2 Old myocardial infarction; Z95.5 Presence of coronary angioplasty implant and graft; Z79.899 Other long term (current) drug therapy; Z79.84 Long term (current) use of oral hypoglycemic drugs; Z79.82 Long term (current) use of aspirin; Z79.02 Long term (current) use of antithrombotics/antiplatelets; F32.A Depression, unspecified; F43.10 Post-traumatic stress disorder, unspecified
CPT/HCPCS: 96366 ×3; 96372 ×2; 96367 ×2; 96361; 96365; 96375; 99285; 36415; 80053; 80048; 85652; 85025 ×2; 86140; 87040; 73130; G0378 ×2; J2543; J3370; J1200; J0690 ×2; J1650 ×2; J1885